=== PATIENT | female | born 1930 | race Caucasian/White ===

== ENCOUNTER → 2017-06-14 | Outpatient (CLI) | payer MEDICARE ==
[~2017-06-14] MED LIST: ALEN70 PO; ASPI81CH PO; DIPH50 PO; FURO40 PO; LEVSOD125 PO; LISI20 PO; METF500 PO; METO50ER PO; PRAV20 PO; SPIR25 PO
== END | disposition home or self-care (01) ==
LOC: LAB EV 08:15
DX: E11.9 Type 2 diabetes mellitus without complications (principal)
CPT/HCPCS: 82043

== ENCOUNTER → 2021-05-03 | Outpatient (CLI) | payer MEDICARE | END | disposition home or self-care (01) | LOC: LAB SHORT 11:47 | DX: D04.39 Carcinoma in situ of skin of other parts of face (principal) | CPT/HCPCS: 88305 ==

== ENCOUNTER → 2022-02-16 | Outpatient (CLI) | payer MEDICARE | LOC: LAB SHORT 12:42 → PLD 12:42 | DX: L57.0 Actinic keratosis (principal) | CPT/HCPCS: 88305 ==